=== PATIENT | male | born 1935 | race Caucasian/White ===

== ENCOUNTER → 2017-01-17 | Day surgery (SDC) | payer MEDICARE ==
[~2017-01-17] MED LIST: ALPR0.5T99 PO; ENOX40P SQ; NEUR100C PO; PAXI30TA7 PO; PROPOFOL 200 MG/20 ML AMP IV ONE; TRAM50 PO
--- NOTE | 2017-01-17 13:32 | GIPROC ---
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 PREP QUALITY: The [place] Bowel Prep Score was Right colon 2, Mid colon 2, and Left colon 2. Total = 6. ESTIMATED BLOOD LOSS: None CONSENT: The patient understands the risks and benefits of the procedure and understands that these risks include, but are not limited to: sedation, allergic reaction, infection, perforation and/or bleeding. Alternative means of evaluation and treatment include, among others: physical exam, x-rays, and/or surgical intervention. The patient elects to proceed with this endoscopic procedure. medical equipment was checked for proper function. Hand hygiene and appropriate measures for infection prevention was taken. After the risks, benefits and alternatives of the procedure were thoroughly explained, Informed consent was verified, confirmed and timeout was successfully executed by the treatment team. A digital exam revealed external hemorrhoids The EC-[id number] ([id number]) endoscope was introduced through the anus and advanced to the terminal ileum which was intubated for a short distance. The instrument was then slowly withdrawn as the colon was fully examined. COLON FINDINGS: Moderate diverticulosis was noted in the sigmoid colon. No bleeding was noted from the diverticulosis. Two polypoid shaped sessile polyps ranging between 3-5mm in size were found in the rectum. Multiple biopsies were performed using cold forceps. Retroflexed views revealed internal hemorrhoids and Retroflexed views revealed small internal hemorrhoids The scope was then completely withdrawn from the patient and the procedure terminated. PROCEDURE WITHDRAWAL TIME:6minutes ADVERSE EVENTS: There were no complications. IMPRESSIONS: 1. Moderate diverticulosis was noted in the sigmoid colon 2. Two sessile polyps ranging between 3-5mm in size were found in the rectum; multiple biopsies were performed using cold forceps 3. Retroflexed views revealed internal hemorrhoids 4. Retroflexed views revealed small internal hemorrhoids 5. Revealed external hemorrhoids RECOMMENDATIONS: 1. Await biopsy results. Biopsy results will not be ready for 7-10 days. If you don't hear from us in two weeks, call our office for results. 2. Continue surveillance 3. Yearly hemoccult 4. No seeds, nuts and popcorn in diet RECALL: Return 3 years Colonoscopy, pending biopsy results Bulmaro Denise MD eSigned: Bulmaro Denise MD 01/17/2017 1:31 PM cc: Aditya Castillo [facility] Katerin and Daljit Hogue M.D. PATIENT NAME: Almita Abraham MR#: [id number]
== END | disposition home or self-care (01) ==
LOC: ESDC 10:47
PROVIDERS: ATTEND Internal Medicine Gastroenterology
DX: Z12.11 Encounter for screening for malignant neoplasm of colon (principal); Z86.010 Personal history of colon polyps; K64.4 Residual hemorrhoidal skin tags; K57.90 Diverticulosis of intestine, part unspecified, without perforation or abscess without bleeding; K62.1 Rectal polyp; K64.8 Other hemorrhoids
CPT/HCPCS: 88305